=== PATIENT | female | born 1990 | race Hispanic/Latino ===

== ENCOUNTER 2022-10-29 18:01 | Emergency (ER) | payer BC, MEDICAID, OTHER ==
[~2022-10-29] VITALS: Ht 162.6 cm; Wt 74.8 kg
[2022-10-29] MEDS ORDERED: ACETAMINOPHEN 500 MG TABLET PO ONE (19:00)
[2022-10-29 19:20] VITALS: BP 128/78
[2022-10-29] MEDS ORDERED: KETOROLAC 30MG VIAL (30MG/ML) IM ONE (19:30)
== END 2022-10-29 19:35 | disposition home or self-care (01) ==
LOC: EDH 18:01
DX: S92.521A Displaced fracture of middle phalanx of right lesser toe(s), initial encounter for closed fracture (principal); Z90.710 Acquired absence of both cervix and uterus; Z88.0 Allergy status to penicillin; W51.XXXA Accidental striking against or bumped into by another person, initial encounter; Y93.89 Activity, other specified; Y92.89 Other specified places as the place of occurrence of the external cause; Y99.8 Other external cause status
CPT/HCPCS: 99283; 73660; 96372; J1885